=== PATIENT | male | born 1985 | race Hispanic/Latino ===

== ENCOUNTER 2017-12-05 19:30 | Outpatient (CLI) | payer BC | END 2017-12-05 19:31 | disposition home or self-care (01) | LOC: SLEEPLAB 19:30 | PROVIDERS: ATTEND Family Medicine | DX: G47.10 Hypersomnia, unspecified (principal); G47.33 Obstructive sleep apnea (adult) (pediatric); F51.9 Sleep disorder not due to a substance or known physiological condition, unspecified; G47.00 Insomnia, unspecified; E66.9 Obesity, unspecified; I10 Essential (primary) hypertension; R06.83 Snoring | CPT/HCPCS: 95811 ==